=== PATIENT | male | born 1980 | race Asian ===

== ENCOUNTER 2016-09-30 12:47 | Emergency (ER) | payer OTHER ==
[~2016-09-30] VITALS: Ht 182.9 cm; Wt 79.4 kg
[2016-09-30 13:18] LABS: PLATELET COUNT 221 K/uL (142-355)
[2016-09-30 13:45] VITALS: BP 146/89; TEMP 98
== END 2016-09-30 13:47 | disposition home or self-care (01) ==
LOC: ED 12:47
DX: L73.2 Hidradenitis suppurativa (principal)
CPT/HCPCS: 85027; 96365; 99284; J0696

== ENCOUNTER 2018-08-20 09:10 | Emergency (ER) | payer OTHER ==
[~2018-08-20] VITALS: Ht 185.4 cm; Wt 83.9 kg
[2018-08-20 09:19] VITALS: BP 138/87; TEMP 97.7
== END 2018-08-20 10:18 | disposition home or self-care (01) ==
LOC: ED 09:10
PROC: 0H9CXZZ Drainage of Left Upper Arm Skin, External Approach (ICD-10-PCS; principal; 2018-08-20)
DX: L02.412 Cutaneous abscess of left axilla (principal)
CPT/HCPCS: 87070; 87205; 99282; J7040

== ENCOUNTER 2018-08-22 10:47 | Emergency (ER) | payer OTHER ==
[~2018-08-22] VITALS: Ht 185.4 cm; Wt 83.9 kg
[2018-08-22 11:00] VITALS: TEMP 97.5
[2018-08-22 12:47] VITALS: BP 130/72
== END 2018-08-22 12:47 | disposition home or self-care (01) ==
LOC: ED 10:47
DX: Z48.00 Encounter for change or removal of nonsurgical wound dressing (principal); L02.412 Cutaneous abscess of left axilla

== ENCOUNTER 2021-11-04 12:25 | Emergency (ER) | payer OTHER ==
[~2021-11-04] VITALS: Ht 185.4 cm; Wt 83.9 kg
[2021-11-04 12:30] VITALS: BP 145/80; TEMP 98
[2021-11-04] MEDS ORDERED: 904272561 PO (14:13)
[2021-11-04] MEDS ORDERED: IBU600 MG PO (14:13)
== END 2021-11-04 14:42 | disposition home or self-care (01) ==
LOC: ED 12:25
PROC: 0H9CXZZ Drainage of Left Upper Arm Skin, External Approach (ICD-10-PCS; principal; 2021-11-04)
DX: L02.412 Cutaneous abscess of left axilla (principal)
CPT/HCPCS: 87070; 87205; 96372; 99283; J0696; J2001; J2270; J2550

== ENCOUNTER 2021-11-08 08:13 | Emergency (ER) | payer OTHER ==
[~2021-11-08] VITALS: Ht 185.4 cm; Wt 81.6 kg
[~2021-11-08 08:13] MED LIST: 904272561 PO; IBU600 MG PO
[2021-11-08 08:15] VITALS: BP 127/70; TEMP 98.7
== END 2021-11-08 08:35 | disposition home or self-care (01) ==
LOC: ED 08:13
DX: L02.412 Cutaneous abscess of left axilla (principal); Z48.01 Encounter for change or removal of surgical wound dressing
CPT/HCPCS: 99281

== ENCOUNTER 2023-02-04 18:10 | Emergency (ER) | payer OTHER ==
[~2023-02-04] VITALS: Ht 185.4 cm; Wt 83.0 kg
[2023-02-04 18:20] VITALS: TEMP 97.8
== END 2023-02-04 20:40 | disposition home or self-care (01) ==
LOC: ED 18:10
PROC: 0HQGXZZ Repair Left Hand Skin, External Approach (ICD-10-PCS; principal; 2023-02-04)
DX: S61.213A Laceration without foreign body of left middle finger without damage to nail, initial encounter (principal); X58.XXXA Exposure to other specified factors, initial encounter
CPT/HCPCS: 90471; 90472; 90715; 99283; J2001

== ENCOUNTER 2023-02-12 11:23 | Emergency (ER) | payer OTHER ==
[~2023-02-12] VITALS: Ht 185.4 cm; Wt 81.6 kg
[2023-02-12 11:28] VITALS: TEMP 97.8
[2023-02-12 11:35] VITALS: BP 142/74
== END 2023-02-12 11:35 | disposition home or self-care (01) ==
LOC: ED 11:23
DX: Z48.00 Encounter for change or removal of nonsurgical wound dressing (principal); Z48.02 Encounter for removal of sutures